=== PATIENT | male | born 1940 | race Caucasian/White ===

== ENCOUNTER 2016-09-07 11:12 | Outpatient (CLI) | payer OTHER | END 2016-09-07 11:13 | disposition home or self-care (01) | DX: M19.031 Primary osteoarthritis, right wrist (principal); M25.531 Pain in right wrist ==

== ENCOUNTER 2016-10-23 10:25 | Outpatient (CLI) | payer OTHER | END 2016-10-23 10:26 | disposition home or self-care (01) | DX: R53.83 Other fatigue (principal); G20 Parkinson's disease ==

== ENCOUNTER 2017-03-01 12:44 | Outpatient (CLI) | payer OTHER | END 2017-03-01 12:45 | disposition home or self-care (01) | LOC: DI 12:44 | PROVIDERS: ATTEND Physician Assistant | DX: R01.1 Cardiac murmur, unspecified (principal); I51.7 Cardiomegaly; I35.0 Nonrheumatic aortic (valve) stenosis | CPT/HCPCS: 93306 ==

== ENCOUNTER 2017-05-15 10:18 | Outpatient (CLI) | payer OTHER ==
--- NOTE | 2017-05-15 16:01 | XRAY Report ---
THREE VIEW RIGHT ELBOW: 05/15/2017 CLINICAL INDICATION: Pain. FINDINGS: AP, lateral, and oblique views of the right elbow demonstrate no evidence of fracture or d islocation. The joint spaces are preserved. No effusion is present. IMPRESSION: NORMAL RIGHT ELBOW. JOB #: [id number] EXT JOB #:[id number]
== END 2017-05-15 10:19 | disposition home or self-care (01) ==
LOC: DI.S 10:18
PROVIDERS: ATTEND Nurse Practitioner Family
DX: M25.521 Pain in right elbow (principal); R22.31 Localized swelling, mass and lump, right upper limb

== ENCOUNTER 2019-09-21 10:42 | Outpatient (CLI) | payer MEDICARE ==
[2019-09-21 17:26] LABS: BASOPHILS % (AUTO) 0.6 %; EOSINOPHILS # (AUTO) 0.2 10^3/uL (0.0-0.7); EOSINOPHILS % (AUTO) 3.4 %; HGB - HEMOGLOBIN 13.6 g/dL (14.0-18.0); LYMPHOCYTES # (AUTO) 1.5 10^3/uL (1.5-3.5); LYMPHOCYTES % (AUTO) 28.5 %; MEAN CORPUSCULAR HEMOGLOBIN 30.5 pg (27.0-31.0); MEAN CORPUSCULAR HGB CONC 32.2 g/dL (32.0-36.0); MEAN CORPUSCULAR VOLUME 94.8 fL (80.0-94.0); MONOCYTES # (AUTO) 0.4 10^3/uL (0.0-1.0); MONOCYTES % (AUTO) 8.1 %; NEUTROPHILS # (AUTO) 3.2 10^3/uL (1.5-6.6); NEUTROPHILS % (AUTO) 59.2 %; PLT - PLATELET COUNT 205 10^3/uL (130-450); RED BLOOD COUNT 4.46 10^6/uL (4.70-6.10); RED CELL DISTRIBUTION WIDTH 13.5 % (12.0-15.0); WHITE BLOOD COUNT 5.3 x10^3/uL (4.8-10.8)
== END 2019-09-21 10:43 | disposition home or self-care (01) ==
LOC: LAB.S 10:42
PROVIDERS: ATTEND Physician Assistant
DX: M62.81 Muscle weakness (generalized) (principal)
CPT/HCPCS: 36415; 85025

== ENCOUNTER 2020-04-28 12:21 | Day surgery (SDC) | payer MEDICARE ==
[2020-04-28] MEDS ORDERED: LACTATED RINGERS 1,000 ML IV ONE ×2 (12:53→14:35)
--- NOTE | 2020-04-28 13:06 | ANESTHESIA ---
Pre-Anesthesia VS, & Labs - Diagnosis weight loss - Procedure colonoscopy Vital Signs: Temp Pulse Resp BP Pulse Ox 36.3 C L 100 16 126/69 94 04/28/20 12:37 04/28/20 12:37 04/28/20 12:37 04/28/20 12:37 04/28/20 12:37 Height: 5 ft 8.5 in Weight (kg): 73 kg Body Mass Index: 24.0 BMI Classification: Healthy weight - NPO >8 hours - Lab Results Lab results reviewed: Yes Home Medications and Allergies Home Medications: Ambulatory Orders Amantadine HCl [Amantadine] 100 mg PO TID 04/07/20 Ascorbic Acid [Vitamin C] 1,000 mg PO DAILY 04/07/20 Carbidopa/Levodopa ER 25/100 [Sinemet Cr 25 mg/100 mg] 1 tab PO DAILY 04/07/20 Carbidopa/Levodopa [Carbidopa-Levodopa 25-100 Tab] 1 each PO DAILY 04/07/20 Cholecalciferol (Vitamin D3) [Vitamin D3] 50 mcg PO DAILY 04/07/20 Cyanocobalamin (Vitamin B-12) [Vitamin B-12 (100mcg tab)] 250 mcg PO DAILY 04/07/20 Lactobacillus Acidophilus [Probiotic Acidophilus] 1 each PO DAILY 04/07/20 Magnesium Malate 360 mg PO DAILY 04/07/20 Naltrexone HCl 0.5 mg PO DAILY 04/07/20 [place]-3 Fatty Acids/Fish Oil [[facility] Fish Oil 1,200 mg Softgel] 1 each PO DAILY 04/07/20 Pramipexole Di-HCl [Mirapex] 1 mg PO TID 04/07/20 Vitamin B Complex 1 each PO DAILY 04/07/20 Vitamin E 400 unit PO DAILY 04/07/20 Amantadine HCl [Amantadine] 100 mg PO TID 04/07/20 Ascorbic Acid [Vitamin C] 1,000 mg PO DAILY 04/07/20 Carbidopa/Levodopa ER 25/100 [Sinemet Cr 25 mg/100 mg] 1 tab PO DAILY 04/07/20 Carbidopa/Levodopa [Carbidopa-Levodopa 25-100 Tab] 1 each PO DAILY 04/07/20 Cholecalciferol (Vitamin D3) [Vitamin D3] 50 mcg PO DAILY 04/07/20 Cyanocobalamin (Vitamin B-12) [Vitamin B-12 (100mcg tab)] 250 mcg PO DAILY 04/07/20 Lactobacillus Acidophilus [Probiotic Acidophilus] 1 each PO DAILY 04/07/20 Magnesium Malate 360 mg PO DAILY 04/07/20 Naltrexone HCl 0.5 mg PO DAILY 04/07/20 [place]-3 Fatty Acids/Fish Oil [[facility] Fish Oil 1,200 mg Softgel] 1 each PO DAILY 04/07/20 Pramipexole Di-HCl [Mirapex] 1 mg PO TID 04/07/20 Vitamin B Complex 1 each PO DAILY 04/07/20 Vitamin E 400 unit PO DAILY 04/07/20 Allergies/Adverse Reactions: Allergies Allergy/AdvReac Type Severity Reaction Status Date / Time No Known Drug Allergies Allergy Verified 04/27/20 13:06 Anes History & Medical History - Anesthetic History Anesthesia Complications: reports: No previous complications Family history of Anesthesia Complications: Denies Family history of Malignant Hyperthermia: Denies - Medical History Cardiovascular: reports: Murmur Pulmonary: reports: None Gastrointestinal: reports: GERD Urinary: reports: Benign prostate hypertrophy Neuro: reports: Other (Parkinsonism) Musculoskeletal: reports: None Endocrine/Autoimmune: reports: None Skin: reports: None - Surgical History General: Colonoscopy Eyes Ears Nose Throat (EENT): Cataracts Exam General: Alert, Oriented x3, Cooperative, No acute distress Dental: WNL Mouth Opening: Greater than 4 Fingerbreadths Neck Mobility: Normal Mallampati classification: II Thyromental Distance: 4-6 cm Respiratory: Lungs clear, Normal breath sounds, No respiratory distress, No accessory muscle use Cardiovascular: Regular rate, Normal S1, Normal S2 Mental/Cognitive Status: Alert/Oriented X3 Cognitive Status: Within normal limits Plan Anesthesia Type: MAC Consent for Procedure(s) Verified and Reviewed: Yes Code Status: Attempt Resuscitation ASA classification: 3-Severe systemic disease Is this case an emergency?: No
[2020-04-28 14:50] VITALS: BP 105/64
--- NOTE | 2020-04-28 16:56 | ANESTHESIA POST OP EVALUATION ---
Anesthesia Post Eval - Post Anesthesia Eval Vitals: Last Vital Signs Temp 36.6 C 04/28/20 14:49 Pulse 57 L 04/28/20 14:49 Resp 13 04/28/20 14:49 BP 105/64 04/28/20 14:49 Pulse Ox 97 04/28/20 14:49 CV Function Including HR & BP: positive: Stable Pain Control: positive: Satisfactory Nausea & Vomiting: positive: Negative Mental Status: positive: Baseline Respiratory Status: Airway Patent Hydration Status: Satisfactory
== END 2020-04-28 12:22 | disposition home or self-care (01) ==
LOC: SDS 12:21
PROVIDERS: ATTEND Surgery
PROC: 0DBP8ZZ Excision of Rectum, Via Natural or Artificial Opening Endoscopic (ICD-10-PCS; 2020-04-28)
PROC: 0DBN8ZZ Excision of Sigmoid Colon, Via Natural or Artificial Opening Endoscopic (ICD-10-PCS; principal; 2020-04-28 13:15)
DX: R63.4 Abnormal weight loss (principal); D12.5 Benign neoplasm of sigmoid colon; K62.1 Rectal polyp; K64.8 Other hemorrhoids; G20 Parkinson's disease; Z68.24 Body mass index [BMI] 24.0-24.9, adult; Z79.899 Other long term (current) drug therapy; Z87.891 Personal history of nicotine dependence
CPT/HCPCS: 45380; 45385; J7120

== ENCOUNTER 2020-11-10 15:56 | Outpatient (CLI) | payer MEDICARE ==
[2020-11-10 16:30] LABS: BASOPHILS % (AUTO) 0.3 %; EOSINOPHILS # (AUTO) 0.2 10^3/uL (0.0-0.7); EOSINOPHILS % (AUTO) 2.7 %; HCT - HEMATOCRIT 40.1 % (42.0-52.0); HGB - HEMOGLOBIN 13.5 g/dL (14.0-18.0); LYMPHOCYTES # (AUTO) 1.3 10^3/uL (1.5-3.5); LYMPHOCYTES % (AUTO) 20.7 %; MEAN CORPUSCULAR HEMOGLOBIN 30.8 pg (27.0-31.0); MEAN CORPUSCULAR HGB CONC 33.7 g/dL (32.0-36.0); MEAN CORPUSCULAR VOLUME 91.6 fL (80.0-94.0); MEAN PLATELET VOLUME 9.7 fL (7.4-11.4); MONOCYTES # (AUTO) 0.5 10^3/uL (0.0-1.0); MONOCYTES % (AUTO) 8.1 %; NEUTROPHILS # (AUTO) 4.3 10^3/uL (1.5-6.6); PLT - PLATELET COUNT 195 10^3/uL (130-450); RED BLOOD COUNT 4.38 10^6/uL (4.70-6.10); RED CELL DISTRIBUTION WIDTH 13.7 % (12.0-15.0); WHITE BLOOD COUNT 6.3 x10^3/uL (4.8-10.8)
[2020-11-10 16:35] LABS: INR 1.1 (0.8-1.2); PT - PROTHROMBIN TIME 12.7 secs (9.9-12.6)
[2020-11-10 16:39] LABS: CALCIUM 9.8 mg/dL (8.5-10.3); CREATININE 1.2 mg/dL (0.6-1.2); POTASSIUM 4.6 mmol/L (3.5-5.0)
== END 2020-11-10 15:57 | disposition home or self-care (01) ==
LOC: LAB 15:56
PROVIDERS: ATTEND Internal Medicine Cardiovascular Disease
DX: I20.8 Other forms of angina pectoris (principal); I35.0 Nonrheumatic aortic (valve) stenosis
CPT/HCPCS: 36415; 80048; 85025; 85610

== ENCOUNTER 2021-01-14 21:18 | Outpatient (CLI) | payer MEDICARE | END 2021-01-14 21:19 | disposition EMS.NT | LOC: EMS 21:18 | DX: Z03.89 Encounter for observation for other suspected diseases and conditions ruled out (principal) ==

== ENCOUNTER 2021-01-19 16:19 | Outpatient (CLI) | payer MEDICARE | END 2021-01-19 16:20 | disposition home or self-care (01) | LOC: COV 16:19 | PROVIDERS: ATTEND Family Medicine | DX: Z20.822 Contact with and (suspected) exposure to COVID-19 (principal) ==

== ENCOUNTER 2021-01-23 15:37 | Outpatient (CLI) | payer MEDICARE ==
--- NOTE | 2021-01-23 16:18 | XRAY Report ---
PROCEDURE: Ribs w/PA Chest RT INDICATIONS: RIGHT SIDED CHEST PAIN TECHNIQUE: 3 views of the right ribs were acquired, along with a single view chest. COMPARISON: Chest x-ray 05/11/2020 FINDINGS: Surgical changes and devices: Vascular stent is noted.. Bones and chest wall: No fractures or dislocations. No suspicious bony lesions. Overlying soft tis sues appear unremarkable. Lungs and pleura: No pleural effusions or pneumothorax. Lungs appear clear. Mediastinum: Mediastinal contours appear normal. Heart size is normal. IMPRESSION: No visualized acute fracture or dislocation. However, occult injury cannot be excluded. Recommend regla rt interval imaging follow-up in 7-10 days as clinically indicated for additional evaluation. Reviewed by: Argentina Dale MD on 01/23/2021 4:16 PM PDT Approved by: Argentina Dale MD on 01/23/2021 4:16 PM PDT Station ID: [id number]
== END 2021-01-23 15:38 | disposition home or self-care (01) ==
LOC: DI.S 15:37
PROVIDERS: ATTEND Nurse Practitioner Family
DX: R07.89 Other chest pain (principal)

== ENCOUNTER 2021-02-16 00:05 | Outpatient (CLI) | payer MEDICARE | END 2021-02-16 00:06 | disposition EMS.NT | LOC: EMS 00:05 | DX: Z03.89 Encounter for observation for other suspected diseases and conditions ruled out (principal) ==

== ENCOUNTER 2021-02-18 14:12 | Outpatient (CLI) | payer MEDICARE ==
--- NOTE | 2021-02-18 15:20 | XRAY Report ---
PROCEDURE: Chest 1 View X-Ray INDICATIONS: LATERAL VIEW TO ACCOMPANY RIB SERIES/ TECHNIQUE: Single lateral of the chest was acquired. COMPARISON: None FINDINGS: Single lateral view shows unremarkable thoracic spine. Transcatheter aortic valve replacement in appr opriate position. No acute cardiopulmonary findings present. IMPRESSION: No acute cardiopulmonary findings Reviewed by: Raimundo Jimenes MD on 02/18/2021 2:19 PM AKDT Approved by: Raimundo Jimenes MD on 02/18/2021 2:19 PM AKDT Station ID: [id number]
--- NOTE | 2021-02-18 15:22 | XRAY Report ---
PROCEDURE: Ribs w/PA Chest RT INDICATIONS: CONTUSION OF RIGHT FRONT WALL OF THORAX/FALL TECHNIQUE: 3 views of the right ribs were acquired, along with a single view chest. COMPARISON: 01/23/2021 FINDINGS: Surgical changes and devices: Transcatheter aortic valve replacement in proper position, unchanged in prior Bones and chest wall: No fractures or dislocations. No suspicious bony lesions. Overlying soft tis sues appear unremarkable. Lungs and pleura: No pleural effusions or pneumothorax. Lungs appear clear. Mediastinum: Mediastinal contours appear normal. Heart size is normal. IMPRESSION: No acute cardiopulmonary findings. No evidence of rib fracture or pneumothorax. Reviewed by: Raimundo Jimenes MD on 02/18/2021 2:20 PM AKDT Approved by: Raimundo Jimenes MD on 02/18/2021 2:20 PM AKDT Station ID: [id number]
== END 2021-02-18 23:59 | disposition home or self-care (01) ==
LOC: DI.S 14:12
PROVIDERS: ATTEND Emergency Medicine
DX: S20.211A Contusion of right front wall of thorax, initial encounter (principal)

== ENCOUNTER 2021-03-15 08:00 | Outpatient (CLI) | payer MEDICARE ==
--- NOTE | 2021-03-15 15:48 | XRAY Report ---
PROCEDURE: SI Joints INDICATIONS: BILATERAL SACROILIAC JOINT PAIN TECHNIQUE: 3 views of the sacroiliac joints were acquired. COMPARISON: None. FINDINGS: Bones: No bony erosions or ankylosis. No suspicious bony lesions. No fractures. Lower lumbar spon dylosis and facet arthropathy. Soft tissues: Overlying bowel gas pattern is normal. No suspicious soft tissue densities. IMPRESSION: No definite SI joint space narrowing, erosions or ankylosis. Mild degenerative spurring. If the patie nt's pain or other symptoms persist, consider further evaluation with MRI. Reviewed by: Carmine Merino MD on 03/15/2021 3:47 PM PDT Approved by: Carmine Merino MD on 03/15/2021 3:47 PM PDT Station ID: [id number]
== END 2021-03-15 23:59 | disposition home or self-care (01) ==
LOC: DI.S 08:00
PROVIDERS: ATTEND Emergency Medicine
DX: M53.3 Sacrococcygeal disorders, not elsewhere classified (principal); M47.816 Spondylosis without myelopathy or radiculopathy, lumbar region

== ENCOUNTER 2021-04-01 02:01 | Outpatient (CLI) | payer MEDICARE | END 2021-04-01 02:02 | disposition EMS.NT | LOC: EMS 02:01 | DX: Z03.89 Encounter for observation for other suspected diseases and conditions ruled out (principal) ==

== ENCOUNTER 2021-11-14 04:17 | Outpatient (CLI) | payer MEDICARE | END 2021-11-14 04:18 | disposition EMS.NT | LOC: EMS 04:17 | DX: Z03.89 Encounter for observation for other suspected diseases and conditions ruled out (principal) ==

== ENCOUNTER 2021-11-23 16:17 | Outpatient (CLI) | payer MEDICARE | END 2021-11-23 16:18 | disposition left against medical advice (07) | LOC: EMS 16:17 | DX: S00.81XA Abrasion of other part of head, initial encounter (principal); W01.0XXA Fall on same level from slipping, tripping and stumbling without subsequent striking against object, initial encounter; Y93.01 Activity, walking, marching and hiking; Y92.512 Supermarket, store or market as the place of occurrence of the external cause ==

== ENCOUNTER 2021-12-18 22:26 | Outpatient (CLI) | payer MEDICARE | END 2021-12-18 22:27 | disposition EMS.NT | LOC: EMS 22:26 | DX: Z03.89 Encounter for observation for other suspected diseases and conditions ruled out (principal) ==

== ENCOUNTER 2022-03-18 19:06 | Outpatient (CLI) | payer MEDICARE | END 2022-03-18 19:07 | disposition EMS.NT | LOC: EMS 19:06 | DX: Z03.89 Encounter for observation for other suspected diseases and conditions ruled out (principal) ==

== ENCOUNTER 2022-03-28 18:59 | Outpatient (CLI) | payer MEDICARE | END 2022-03-28 19:00 | disposition EMS.NT | LOC: EMS 18:59 | DX: Z03.89 Encounter for observation for other suspected diseases and conditions ruled out (principal) ==

== ENCOUNTER 2022-04-05 04:24 | Outpatient (CLI) | payer MEDICARE | END 2022-04-05 04:25 | disposition EMS.NT | LOC: EMS 04:24 | DX: R53.1 Weakness (principal) ==

== ENCOUNTER 2022-05-13 17:29 | Outpatient (CLI) | payer MEDICARE | END 2022-05-13 17:30 | disposition EMS.NT | LOC: EMS 17:29 | DX: Z03.89 Encounter for observation for other suspected diseases and conditions ruled out (principal) ==

== ENCOUNTER 2022-05-31 23:05 | Outpatient (CLI) | payer MEDICARE | END 2022-05-31 23:06 | disposition EMS.NT | LOC: EMS 23:05 | DX: Z03.89 Encounter for observation for other suspected diseases and conditions ruled out (principal) ==

== ENCOUNTER 2022-08-24 19:55 | Outpatient (CLI) | payer MEDICARE | END 2022-08-24 19:56 | disposition EMS.NT | LOC: EMS 19:55 | DX: Z03.89 Encounter for observation for other suspected diseases and conditions ruled out (principal) ==